=== PATIENT | male | born 1990 | race Caucasian/White ===

== ENCOUNTER 2018-05-02 07:28 | Emergency (ER) | payer MEDICAID ==
--- NOTE | 2018-05-02 07:52 | EDPHY ---
HPI/HX/ROS/PE/MDM Narrative: CHIEF COMPLAINT: Cough, sore throat HPI: This patient is an otherwise health 27 year old male. He complains of severe sore throat and productive cough beginning yesterday. Today, his throat pain is 8/10 in severity and he complains of difficulty swallowing. Last night, he was unable to drink fluids due to pain. He has tried ibuprofen without relief. He denies any generalized aches. He has not checked his temperature but does not feel febrile. He endorses thick yellow sputum with his cough. No chest pain, shortness of breath, hemoptysis, abdominal pain, or other associated symptoms. REVIEW OF SYSTEMS: A comprehensive 10 system review of systems is otherwise negative aside from elements mentioned in the history of present illness and medical decision making. PMH: Denies. SOCIAL HISTORY: Single. Employed. Does not abuse tobacco, drugs, or alcohol. PHYSICAL EXAM: General:Patient is alert, in no acute distress. Hoarse, soft voice. ENT:Eyes are normal to inspection. ENT inspection normal. Neck: Normal inspection. Full range of motion. Respiratory:No respiratory distress. Breath sounds normal bilaterally. Cardiovascular: Regular rate and rhythm. Strong peripheral pulses. Normal cap refill. Abdomen:The abdomen is nontender to palpation. There are no peritoneal signs. There are normal bowel sounds. Back: Normal to inspection. No tenderness to palpation. Skin: Normal color. No rash. Warm and dry. Extremities: Normal appearance. Full range of motion. Neuro: Oriented x3. Normal motor function. Normal sensory function. ED Course: 27 y/o male presents with two day history of sore throat and productive cough. Patient has a hoarse, soft voice but exam is otherwise unremarkable - no pharyngeal erythema, no tonsillar hypertrophy, no exudates. Lungs are clear to auscultation. Plan to establish IV, proceed with rehydration with 1L IV NS. Plan to administer 30mg IV Toradol for pain and swelling relief. Plan for labs including strep and flu swabs. Reviewed chest x-ray. This is largely unremarkable, no pneumonia or other acute abnormalities. Rapid strep screen is negative. Flu swab pending. 11:55 Flu swab negative. Delay due to repeat test. Reassessed patient. Discussed laboratory results. Plan to discharge home in good condition. Follow up and return precautions discussed. Prescription for [place] provided for severe pain. The patient is comfortable with this plan. MDM: This patient presents with sore throat. He is generally well appearing on exam with no signs of [employer], epiglottitis or airway compromise. After treatment he is tolerating PO without difficulty. Given negative strep test, I do not think antibiotics are indicated. There is not significant tonsillomegaly to prompt decadron administration. The patient is comfortable going home. We discussed strict return precautions. - Data Points Imaging Results: Imaging Impressions Chest X-Ray 05/02/18 07:49 Impression: Airways disease. No pneumonia. Imaging: I viewed and interpreted images myself Laboratory Results: 05/02/18 05/02/18 05/02/18 Unknown 10:20 07:45 Nasal Influenza A PCR NEGATIVE FOR FLU A Cancelled (NEGATIVE) Nasal Influenza B PCR NEGATIVE FOR FLU B Cancelled (NEGATIVE) Group A Strep Screen NEGATIVE (NEGATIVE) Group A Strep DNA Pending Medications Given: Discontinued Medications Sodium Chloride (Ns) 1,000 mls @ 0 mls/hr IV EDNOW ONE; Wide Open PRN Reason: Protocol Stop: 05/02/18 08:28 Last Admin: 05/02/18 08:37 Dose: 1,000 mls Ketorolac Tromethamine (Toradol) 30 mg IVP EDNOW ONE Stop: 05/02/18 08:28 Last Admin: 05/02/18 08:39 Dose: 30 mg General Time Seen by Provider: 05/02/18 07:49 Initial Vital Signs: Initial Vital Signs Temperature (C) 37.0 C 05/02/18 07:33 Heart Rate 89 05/02/18 07:33 Respiratory Rate 18 05/02/18 07:33 Blood Pressure 131/72 H 05/02/18 07:33 O2 Sat (%) 94 05/02/18 07:33 O2 Delivery Mode Room Air Allergies/Adverse Reactions: No Known Allergies Allergy (Unverified 05/02/18 07:32) Home Medications: Medication Instructions Recorded Hydrocodone/APAP 5/325 [[place] 1 - 2 tab PO Q6H PRN #5 tab 05/02/18 5/325 (*)] Departure - Departure Disposition: Home, Routine, Self-Care Clinical Impression: Acute pharyngitis Qualifiers: Pharyngitis/tonsillitis etiology: unspecified etiology Qualified Code(s): J02.9 - Acute pharyngitis, unspecified Condition: Good Instructions: Pharyngitis (ED) Additional Instructions: Take ibuprofen and Tylenol as directed below as needed for pain. You may take [place] as prescribed as needed for severe pain. Do not take this medication with Tylenol, see precautions below. Follow up with your primary care provider. Stay well hydrated. You may try Throat Coat or similar herbal tea with honey which may be soothing to your throat. Return for high fever, difficulty breathing, inability to tolerate fluids by mouth, or other worsening of condition. Adult Pain & Fever Control: We recommend Acetaminophen (Tylenol) and Ibuprofen (Motrin,Advil) for pain and fever control. When fever is high or pain severe, both drugs can be used at the same time, but at different intervals. Please note the time differences. Your dose is: Acetaminophen 650mg every 4 to 6 hours Ibuprofen 600mg every 6-8 hours with food Note: do not take Acetaminophen with Hydrocodone (Vicodin, Lortab) or Oxycodone (Percocet). These medications also contain Acetaminophen. No more than 3000mg of Acetaminophen should be taken in 24 hours (for an adult). Referrals: Baylee Hale MD [Medical Doctor] - As per Instructions Prescriptions: Hydrocodone/APAP 5/325 [[place] 5/325 (*)] 1 - 2 tab PO Q6H PRN #5 tab PRN Reason: Pain, Severe Report Scribed for: Hi Schaeffer Report Scribed by: Dana Parrish Date of Report: 05/02/18 Time of Report: 07:52 Physician Review and Approval Statement: Portions of this note were transcribed by an ED scribe. I personally performed the history, physical exam, and medical decision making; and confirm the accuracy of the information in the transcribed note.
[2018-05-02] MEDS ORDERED: KETOROLAC 30 MG/1 ML SDV IVP ONE (08:27)
[2018-05-02] MEDS ORDERED: NS 1,000 ML IV ONE (08:27)
[2018-05-02 12:18] VITALS: BP 118/73
[2018-05-02 20:24] LABS: GROUP A STREP DNA (THROAT) POSITIVE (NEGATIVE)
== END 2018-05-02 12:17 | disposition home or self-care (01) ==
DX: J02.9 Acute pharyngitis, unspecified (principal); E86.9 Volume depletion, unspecified
CPT/HCPCS: 96374; J1885